=== PATIENT | female | born 1995 | race Two or more races ===

== ENCOUNTER 2024-04-06 16:34 | Outpatient (CLI) | payer OTHER ==
[2024-04-06 15:57] VITALS: BP 124/77
[~2024-04-06 16:34] MED LIST changes: -0.9 % SODIUM CHLORIDE 1,000 ML IV STA; -FAMOTIDINE/PF 20 MG in 0.9 % SODIUM CHLORIDE 8 ML IV PUSH STA; -PROMETHAZINE HCL 25 MG/ML AMPUL IM ONE
[2024-04-06] MEDS ORDERED: RINGERS SOLUTION,LACTATED 1,000 ML IV SCH (17:00)
[2024-04-06] MEDS ORDERED: NIFEDIPINE 20 MG CAPSULE PO NR (17:00)
[2024-04-06] MEDS ORDERED: BETAMETHASONE ACETATE,SOD PHOS 30 MG/5 ML ML IM SCH (17:00)
[2024-04-06] MEDS ORDERED: PANTOPRAZOLE SODIUM 40 MG/VIAL VIAL IV NR (17:00)
[2024-04-06] MEDS ORDERED: ONDANSETRON HCL 2 MG/ML VIAL IV NR (17:00)
[2024-04-06] MEDS ORDERED: NIFEDIPINE 20 MG CAPSULE PO PRN (20:15)
[2024-04-06 21:48] LABS: PH,URINE 5.5 (5.0-8.0); URINE APPEARANCE Clear; URINE BILIRRUBIN Negative (NEGATIVE); URINE BLOOD Negative; URINE COLOR Yellow; URINE GLUCOSE Negative (NEGATIVE); URINE LEUKOCYTE Negative; URINE NITRATE Negative; URINE PROTEIN 30 (NEGATIVE); URINE UROBILINOGEN 0.2 E.U./dl
[2024-04-06 21:49] LABS: URINE BACTERIA 1885.9 uL (0.0-1933); URINE EPITHELIAL CELLS 19.4 uL (0.0-38.8); URINE RBC 12.2 uL (0.0-20.8); URINE WBC 32.6 uL (0.0-23.2)
[2024-04-06 21:57] LABS: URINE KETONE >=160 (NEGATIVE)
[2024-04-06 23:22] VITALS: BP 95/58
[2024-04-07 02:57] VITALS: BP 104/65
[2024-04-07 06:14] VITALS: BP 108/63; O2SAT 97
[2024-04-07] MEDS ORDERED: FAMOTIDINE/PF 20 MG/2 ML VIAL IV SCH (09:00)
[2024-04-07 11:22] VITALS: BP 97/58; O2SAT 100
[2024-04-07 16:25] VITALS: BP 110/64
[2024-04-07] MEDS ORDERED: PANTOPRAZOLE SODIUM 40 MG/VIAL VIAL IV SCH (17:00)
[2024-04-07 18:21] VITALS: BP 110/64
== END 2024-04-07 11:36 | disposition home or self-care (01) ==
LOC: OBS/DEL 16:34
PROVIDERS: ATTEND Obstetrics & Gynecology
DX: O47.03 False labor before 37 completed weeks of gestation, third trimester (principal); O26.873 Cervical shortening, third trimester; Z3A.35 35 weeks gestation of pregnancy; K29.00 Acute gastritis without bleeding

== ENCOUNTER → 2024-04-06 | Emergency (ER) | payer OTHER ==
[~2024-04-06] VITALS: Ht 162.6 cm; Wt 86.2 kg
[~2024-04-06] MED LIST: 0.9 % SODIUM CHLORIDE 1,000 ML IV STA; FAMOTIDINE/PF 20 MG in 0.9 % SODIUM CHLORIDE 8 ML IV PUSH STA; PRENA1 TRUE CO1 EACH; PROMETHAZINE HCL 25 MG/ML AMPUL IM ONE
[2024-04-06 12:22] LABS: HEMATOCRIT 45.5 % (36.0-45.00); MEAN CORPUSCULAR HGB CONC 35.2 g/dl (32.0-36.0); PLATELET COUNT 203 K/uL (150-450); RED BLOOD COUNT 5.17 M/uL (4.00-6.00); RED CELL DISTRIBUTION WIDTH 12.7 % (11.5-14.5)
[2024-04-06 13:02] LABS: CALCIUM 10.2 mg/dL (8.5-10.1); CREATININE SERUM 0.78 mg/dL (0.55-1.02); GFR 86.72; POTASSIUM 4.26 mEq/L (3.5-5.1)
== END | disposition still patient (30) ==
LOC: ER 10:36
PROVIDERS: Emergency Medicine
DX: O99.613 Diseases of the digestive system complicating pregnancy, third trimester (principal); K92.89 Other specified diseases of the digestive system; Z3A.35 35 weeks gestation of pregnancy; K29.70 Gastritis, unspecified, without bleeding

== ENCOUNTER 2024-04-23 14:45 | Inpatient (IN) | payer OTHER ==
[~2024-04-23] VITALS: Ht 162.6 cm; Wt 91.6 kg
[2024-04-23 16:31] LABS: HEMATOCRIT 39.2 % (36.0-45.00); HEMOGLOBIN 13.7 g/dL (12.0-15.00); MEAN CELL VOLUME 88.4 fL (80.00-100.00); MEAN CORPUSCULAR HEMOGLOBIN 30.9 pg (27.00-32.0); MEAN CORPUSCULAR HGB CONC 34.9 g/dl (32.0-36.0); PLATELET COUNT 237 K/uL (150-450); RED BLOOD COUNT 4.43 M/uL (4.00-6.00); RED CELL DISTRIBUTION WIDTH 13.1 % (11.5-14.5)
[2024-04-23 16:34] LABS: PH,URINE 6.5 (5.0-8.0); URINE APPEARANCE Clear; URINE BILIRRUBIN Negative (NEGATIVE); URINE BLOOD Negative; URINE COLOR Yellow; URINE GLUCOSE Negative (NEGATIVE); URINE KETONE Trace (NEGATIVE); URINE LEUKOCYTE Large; URINE NITRATE Negative; URINE PROTEIN Negative (NEGATIVE); URINE UROBILINOGEN 0.2 E.U./dl
[2024-04-23 16:35] LABS: URINE BACTERIA 4790.2 uL (0.0-1933); URINE EPITHELIAL CELLS 39.7 uL (0.0-38.8); URINE RBC 8.3 uL (0.0-20.8); URINE WBC 79.4 uL (0.0-23.2)
[2024-04-23 16:59] LABS: URINE CAST 0.14 uL (0.0-1.40)
[2024-04-23 17:02] LABS: INR < 0.93; PARTIAL THROMBOPLASTIN TIME 24.8 SECONDS (22.0-34.0)
[2024-04-23 17:07] LABS: ALBUMIN 2.8 gm/dL (3.4-5.0); BILIRUBIN TOTAL 0.33 mg/dL (0.3-1.2); CALCIUM 9.2 mg/dL (8.5-10.1); CREATININE SERUM 0.69 mg/dL (0.55-1.02); GFR 99.9; GLOBULINA 3.5 G/DL (2.4-3.5); POTASSIUM 4.1 mEq/L (3.5-5.1); TOTAL PROTEIN 6.3 gm/dL (6.4-8.2)
[2024-05-02 10:14] VITALS: BP 136/71
[2024-05-02 10:30] VITALS: BP 150/83
[2024-05-02 11:21] LABS: HEMOGLOBIN 15.1 g/dL (12.0-15.00); MEAN CELL VOLUME 88.5 fL (80.00-100.00); MEAN CORPUSCULAR HEMOGLOBIN 30.4 pg (27.00-32.0); MEAN CORPUSCULAR HGB CONC 34.4 g/dl (32.0-36.0); PLATELET COUNT 227 K/uL (150-450); RED BLOOD COUNT 4.97 M/uL (4.00-6.00); RED CELL DISTRIBUTION WIDTH 13.5 % (11.5-14.5)
[2024-05-02] MEDS ORDERED: RINGERS SOLUTION,LACTATED 1,000 ML IV SCH (12:00)
[2024-05-02 12:22] LABS: INR < 0.93; PARTIAL THROMBOPLASTIN TIME 25.9 SECONDS (22.0-34.0); PROTHROMBIN TIME 10.1 SECONDS (9.0-11.5)
[2024-05-02 12:28] LABS: ALBUMIN 3.1 gm/dL (3.4-5.0); BILIRUBIN TOTAL 0.49 mg/dL (0.3-1.2); CALCIUM 9.2 mg/dL (8.5-10.1); CREATININE SERUM 0.67 mg/dL (0.55-1.02); GFR 103.34; POTASSIUM 3.88 mEq/L (3.5-5.1); TOTAL PROTEIN 7.1 gm/dL (6.4-8.2)
[2024-05-02] MEDS ORDERED: MEASLES,MUMPS,RUBELLA VACC/PF 1 VIAL VIAL SUBCUTANEO NR (13:00)
[2024-05-02] MEDS ORDERED: OXYTOCIN 1,000 ML IV SCH (14:00)
[2024-05-02] MEDS ORDERED: CHLORHEXIDINE GLUCONATE 120 ML BOTTLE TOP SCH (14:00)
[2024-05-02] MEDS ORDERED: IBUprofen 400 MG TABLET PO SCH (14:00)
[2024-05-02 15:55] VITALS: BP 141/64
[2024-05-02 19:14] VITALS: BP 148/78
[2024-05-03 01:50] LABS: URINE APPEARANCE Clear; URINE BILIRRUBIN Negative (NEGATIVE); URINE BLOOD Large; URINE COLOR Yellow; URINE KETONE 15 (NEGATIVE); URINE LEUKOCYTE Trace; URINE NITRATE Negative; URINE PROTEIN Trace (NEGATIVE); URINE UROBILINOGEN 0.2 E.U./dl
[2024-05-03 01:53] LABS: URINE EPITHELIAL CELLS 5.2 uL (0.0-38.8); URINE RBC 552.3 uL (0.0-20.8)
[2024-05-03 01:56] LABS: URINE CAST 0.44 uL (0.0-1.40); URINE GLUCOSE 100 MG/DL (NEGATIVE)
[2024-05-03 05:08] VITALS: BP 101/62
[2024-05-03 07:47] LABS: HEMATOCRIT 36.9 % (36.0-45.00); HEMOGLOBIN 12.3 g/dL (12.0-15.00); MEAN CELL VOLUME 90.7 fL (80.00-100.00); MEAN CORPUSCULAR HEMOGLOBIN 30.2 pg (27.00-32.0); MEAN CORPUSCULAR HGB CONC 33.3 g/dl (32.0-36.0); PLATELET COUNT 188 K/uL (150-450); RED BLOOD COUNT 4.07 M/uL (4.00-6.00); RED CELL DISTRIBUTION WIDTH 13.3 % (11.5-14.5)
[2024-05-03 07:56] LABS: ALBUMIN 2.3 gm/dL (3.4-5.0); BILIRUBIN TOTAL 0.52 mg/dL (0.3-1.2); CALCIUM 8.5 mg/dL (8.5-10.1); CREATININE SERUM 0.67 mg/dL (0.55-1.02); GFR 103.34; POTASSIUM 4.08 mEq/L (3.5-5.1); TOTAL PROTEIN 5.3 gm/dL (6.4-8.2); URIC ACID 3.7 mg/dL (2.5-7.5)
[2024-05-03 08:36] VITALS: BP 125/78
[2024-05-03 16:05] VITALS: BP 109/70
[2024-05-04 02:13] VITALS: BP 93/61
[2024-05-04 08:04] VITALS: BP 123/78
== END 2024-05-04 13:25 | disposition home or self-care (01) | DRG 807 ==
LOC: LDR 05-02 10:19 → OB/GYN 05-02 13:13
PROVIDERS: Obstetrics & Gynecology; Surgery; ADMIT Obstetrics & Gynecology; ATTEND Obstetrics & Gynecology
PROC: 10E0XZZ Delivery of Products of Conception, External Approach (ICD-10-PCS; principal; 2024-05-02)
PROC: 0UQG7ZZ Repair Vagina, Via Natural or Artificial Opening (ICD-10-PCS; 2024-05-02)
PROC: 0UQMXZZ Repair Vulva, External Approach (ICD-10-PCS; 2024-05-02)
PROC: 4A1HXCZ Monitoring of Products of Conception, Cardiac Rate, External Approach (ICD-10-PCS; 2024-05-02)
DX: O71.4 Obstetric high vaginal laceration alone (principal); Z37.0 Single live birth; O71.82 Other specified trauma to perineum and vulva; O69.81X0 Labor and delivery complicated by cord around neck, without compression, not applicable or unspecified; Z3A.39 39 weeks gestation of pregnancy; Z20.822 Contact with and (suspected) exposure to COVID-19